=== PATIENT | male | born 1950 | race Caucasian/White ===

== ENCOUNTER 2023-07-19 09:29 | Emergency (ER) | payer MEDICARE, SELFPAY ==
[2023-07-19 09:47] VITALS: BP 180/70
[2023-07-19 09:57] VITALS: BMI 28.6
--- NOTE | 2023-07-19 10:07 | ED.GENMED ---
Addendum entered and electronically signed by Tish Lopes PA-C 07/23/23 07:17:
Urine culture grew out Klebsiella and Enterococcus. Patient has had a Shukla since February. He came in with a borderline temperature and urinary retention. His Shukla was replaced and he is feeling well, his urine is still slightly cloudy. I gave
him the option of speaking with his family doctor and having a urine rechecked because he could be colonized versus obstructing his antibiotic. Given that he has not had Shukla for terribly long he would prefer to take a different antibiotic for
now. Patient is not having any chills or rigors, back pain, vomiting. Return precautions given
Original Note:
History of Present Illness
General
Chief Complaint: Catheter/Tube Problem
Time Seen by Provider: 07/19/23 09:54
Travel History
Have you had any contact with someone who has COVID-19?: No
Do you have any symptoms of coronavirus? Fever > 100 degrees, chills, cough, shortness of breath, sore throat, loss of taste or smell, muscle aches, or headache?: No
History of Present Illness
History of Present Illness:
72-year-old male presents to the emergency department for evaluation of urinary retention. He has required Shukla catheter use since February of last year, states the tubing snagged on a shower and it was pulled out last night. He attempted to
continue to urinate on exam today without success. He sees urology through [facility] but is interested in seeing a new urologist locally
Past History
Past History
ED Past Medical History: Negative Arrthythmia
Social History
Tobacco: Non-smoker
Alcohol: None
Drug: None
Personal:
Living: with family
Employment: Employed
Family History
Family History: Other (Noncontributory)
Review of Systems
Review of Systems
Allergies reviewed?: Yes
All Other Systems: ROS reviewed and negative except as documented in HPI and ROS
Phy Exam
Physical Exam
Physical Exam:
GEN: Appears uncomfortable
HEENT: Oral mucosa moist, no scleral icterus
Cardiac: Regular rate
Lung: No respiratory distress, no tachypnea
MSK: No gross deformity or injuries
Skin: Good color, no pallor or jaundice, no rashes
Neuro: AO x3, moves all extremities freely
Psych: Calm, cooperative
Course
Orders/Labs/Results
Orders:
Orders
07/19/23 09:56
Shukla Placement- Treatment ONCE
Reason for insertion: Acute Retention
Catheter- Indwelling As Directed
Reason for insertion: Acute Retention
Discontinue Date/Time: 07/22/23 0600
07/19/23 10:19
Urinalysis Reflex To Culture Urgent
Date Specimen was Collected: 07/19/23
Time Specimen was Collected: 10:10
Urine Microscopic Reflex Cult Urgent
Urine Culture Urgent
CHERRI Source: U
Specimen Description:
Date Specimen was Collected: 07/19/23
Time Specimen was Collected: 10:10
Abnormal Lab Results
07/19/23
10:19
Ur Occult Blood Reflex 2+ A
(Negative)
Urine Nitrite (Reflex) Positive A
(Negative)
Leukocyte Esterase Rfl 2+ A
(Negative)
Urine RBC 7-10 A /HPF
(0-2)
Urine WBC (Reflex) >100 A /HPF
(0-5)
Urine Bacteria (Reflex) Many A
(Negative)
Urine Albumin (Reflex) 1+ A
(Neg - Trace)
Vital Signs
Initial and Last Documented VS:
Initial Vital Signs
Temp Pulse Resp BP Pulse Ox
99.2 F 72 24 180/70 95
07/19/23 09:47 07/19/23 09:47 07/19/23 09:47 07/19/23 09:47 07/19/23 09:47
Last Documented Vital Signs
Temp Pulse Resp BP Pulse Ox
99.2 F 72 24 180/70 95
07/19/23 09:47 07/19/23 09:47 07/19/23 09:47 07/19/23 09:47 07/19/23 09:47
MDM/Problems Addressed
MDM/Problems Addressed:
Shukla catheter in place with greater than 800 mL of urine drained patient improving, will cover with antibiotics given prolonged retention
*Critical Care Note
Total Time (30-74mins, 75-104mins- exclusive of procedures): Not Applicable
ED Attending Note
-
Portions of this chart may have been created with voice recognition software.� Occasional wrong word or��sound alike� substitutions may have occurred due to the inherent limitations of voice recognition software.
Discharge Plan
Departure
Patient Disposition: Home (Routine Discharge)
Date of Disposition: 07/19/23
Time of Disposition: 10:12
Patient with high blood pressure during this ER visit?: No
Discharge Problem:
Acute on chronic urinary retention
Instructions: How to Care for Your Shukla Catheter, Male
Prescriptions:
New
cephalexin 500 mg capsule
500 mg PO BID 7 Days Qty: 14 0RF
No Action
ondansetron 4 MG tablet,disintegrating
4 mg PO TIDPRN PRN (Reason: nausea/vomiting) Qty: 20 0RF
Interventions
Interventions:
*Risk Screen - Suicide Last Done: 07/19/23 09:57
*General Assessment Last Done: 07/19/23 09:57
*Neglect/Abuse Screening Last Done: 07/19/23 09:57
ED- Fall Risk Assessment Last Done: 07/19/23 09:57
*ED COVID-19 Vaccine History Last Done: 07/19/23 09:57
*Nursing Disposition Last Done: 07/19/23 11:09
GL-Sixzbo-Aveiugtzbg Assessment Last Done: 07/19/23 09:57
ED-Male Genitourinary Assessment Last Done: 07/19/23 09:57
Discharge Date and Time
Discharge Date/Time: 07/19/23 11:09
Print Language: ICELANDIC
[2023-07-19 10:25] LABS: Urine Albumin 1+ (Neg - Trace); Urine Bilirubin Negative (Negative); Urine Character Slightly Cloudy (Clear); Urine Color Yellow; Urine Glucose Negative (Negative); Urine Ketone Negative (Negative); Urine Leukocyte 2+ (Negative); Urine Nitrite Positive (Negative); Urine Occult Blood 2+ (Negative); Urine Urobilinogen Negative (Neg - 1+)
[2023-07-19 11:13] LABS: Urine Bacteria Many (Negative); Urine White Cell >100 /HPF (0-5)
== END 2023-07-19 11:09 | disposition home or self-care (01) ==
LOC: EMR 09:29
PROVIDERS: Physician Assistant; EMERGENCY PHYSICIAN Emergency Medicine; FAMILY PHYSICIAN Family Medicine
DX: R33.9 Retention of urine, unspecified (principal)
CPT/HCPCS: 99283; 51702; 81003; 81015; 87077; 87086; 87186

== ENCOUNTER → 2023-07-24 10:26 | Outpatient (REF) | payer MEDICARE, SELFPAY ==
[2023-07-24 11:52] LABS: ALT (SGPT) 18 U/L (0-50); AST (SGOT) 22 U/L (17-59); HDL Cholesterol 39 mg/dl; LDL Cholesterol, Calculated 84 mg/dl; Total Cholesterol 146 mg/dl (50-199); Triglyceride 118 mg/dl (10-149); Very Low Density Lipoprotein 23 mg/dl (0-30)
[2023-07-24 12:22] LABS: PSA, Total - Screen 8.09 ng/ml (0.0-4.0)
== END ==
LOC: REG 10:26
PROVIDERS: ATTENDING PHYSICIAN Family Medicine
DX: E78.2 Mixed hyperlipidemia (principal); I10 Essential (primary) hypertension; Z12.5 Encounter for screening for malignant neoplasm of prostate
CPT/HCPCS: 36415; 80061; 84450; 84460; G0103

== ENCOUNTER → 2023-11-21 11:04 | Outpatient (REF) | payer MEDICARE, SELFPAY ==
[2023-11-21 12:11] LABS: % Basophils 0.3 % (0-2); % Eosinophils 1.4 % (0-6); % Immature Granulocytes 0.5 % (0-0.5); % Lymphocytes 22.7 % (20.5-51.1); % Monocytes 5.1 % (1.7-9.3); Absolute Eosinophils 0.1 10^3/uL (0-0.7); Absolute Lymphocytes 1.4 10^3/uL (1.2-3.4); Absolute Monocytes 0.3 10^3/uL (0.1-0.6); Absolute Neutrophils 4.4 10^3/uL (1.4-6.5); Hematocrit 37.6 % (39.0-52.0); Hemoglobin 12.6 g/dL (13.0-18.0); Mean Corp Hgb Conc. 33.5 g/dL (33.0-37.0); Mean Corpuscular Hgb 27.4 pg (27.0-31.0); Mean Corpuscular Volume 81.7 fL (80.0-94.0); Mean Platelet Volume 10.4 fL (7.4-10.4); Nucleated Red Blood Cells % 0 % (-); Platelet Count 170 10^3/uL (130-400); Red Cell Dist. Width 13.7 % (11.5-14.5); White Blood Cell Count 6.3 10^3/uL (4.8-10.8)
[2023-11-21 12:36] LABS: ALT (SGPT) 14 U/L (0-50); AST (SGOT) 24 U/L (17-59); Blood Urea Nitrogen 19 mg/dl (9-20); Calcium 9.4 mg/dl (8.4-10.2); Carbon Dioxide 26 mmol/L (22-30); Chloride 103 mmol/L (98-107); Glucose 99 mg/dl (70-99); HDL Cholesterol 34 mg/dl; LDL Cholesterol, Calculated 86 mg/dl; Magnesium 2.1 mg/dl (1.6-2.3); Potassium 4.3 mmol/L (3.5-5.1); Sodium 141 mmol/L (135-145); Total Cholesterol 161 mg/dl (50-199); Triglyceride 205 mg/dl (10-149); Very Low Density Lipoprotein 41 mg/dl (0-30); eGFR > 60.00
[2023-11-23 05:07] LABS: PSA Total 0.8 ng/mL (0.0-4.0)
== END ==
LOC: REG 11:04
PROVIDERS: ATTENDING PHYSICIAN Surgery; FAMILY PHYSICIAN Family Medicine
DX: I10 Essential (primary) hypertension (principal); R39.11 Hesitancy of micturition; N40.1 Benign prostatic hyperplasia with lower urinary tract symptoms; E78.2 Mixed hyperlipidemia; R79.89 Other specified abnormal findings of blood chemistry
CPT/HCPCS: 36415; 80048; 80061; 83735; 84153; 84154; 84450; 84460; 85025

== ENCOUNTER → 2023-12-11 11:20 | Outpatient (REF) | payer MEDICARE, SELFPAY | LOC: HWRAD 11:20 | PROVIDERS: ATTENDING PHYSICIAN Surgery; FAMILY PHYSICIAN Family Medicine | DX: N43.3 Hydrocele, unspecified (principal) | CPT/HCPCS: 76870; 93976 ==

== ENCOUNTER 2024-10-31 10:15 | Emergency (ER) | payer MEDICARE, SELFPAY ==
[2024-10-31 10:16] VITALS: BP 176/69
--- NOTE | 2024-10-31 12:27 | ED.GENMED ---
History of Present Illness
General
Chief Complaint: Eye Problems
Time Seen by Provider: 10/31/24 11:06
History of Present Illness
History of Present Illness:
74-year-old male presents to the emergency department for evaluation of right eye redness and discomfort as well as blurry vision for the past week. He denies any trauma or injury, he wears glasses but no contacts. Denies any fever or headache,
denies seeing halos around objects. Does not have an eye doctor that he sees routinely
Past History
Past History
ED Past Medical History: Negative Arrthythmia
Social History
Tobacco: Non-smoker
Alcohol: None
Drug: None
Personal:
Living: with family
Employment: Employed
Family History
Family History: Other (Noncontributory)
Review of Systems
Review of Systems
Allergies reviewed?: Yes
All Other Systems: ROS reviewed and negative except as documented in HPI and ROS
Phy Exam
Physical Exam
Physical Exam:
GEN: Well appearing, NAD, WDWN
HEENT: Oral mucosa moist, no scleral icterus
Eyes: Moderate diffuse conjunctival injection on the right with limbic flush, anterior chamber is quiet with no hyphema or hypopyon. There is no focal fluorescein dye uptake.
Visual acuity: OS 20/25, OD 20/25
Ocular pressures: 33 mmHg on the right, 22 mmHg on the left
Cardiac: Regular rate
Lung: No respiratory distress, no tachypnea
MSK: No gross deformity or injuries
Skin: Good color, no pallor or jaundice, no rashes
Neuro: AO x3, moves all extremities freely
Psych: Calm, cooperative
Course
Vital Signs
Initial and Last Documented VS:
Initial Vital Signs
Temp Pulse Resp BP Pulse Ox
98.1 F 63 18 176/69 98
10/31/24 10:16 10/31/24 10:16 10/31/24 10:16 10/31/24 10:16 10/31/24 10:16
Last Documented Vital Signs
Temp Pulse Resp BP Pulse Ox
98.1 F 63 18 176/69 98
10/31/24 10:16 10/31/24 10:16 10/31/24 10:16 10/31/24 10:16 10/31/24 12:28
MDM/Problems Addressed
MDM/Problems Addressed:
Patient visual acuity is intact however intraocular pressure is mildly elevated on the right compared to the left. He has no signs of vision compromising condition at this point. Will start him empirically on antibiotics and have referred him to
ophthalmology as an outpatient who assured close follow-up on Saturday
*Pulse Oximetry
SaO2: 98
Oxygen Mode of Delivery: Room air
Patient hypoxic: no
*Critical Care Note
Total Time (30-74mins, 75-104mins- exclusive of procedures): Not Applicable
ED Attending Note
-
Portions of this chart may have been created with voice recognition software.� Occasional wrong word or��sound alike� substitutions may have occurred due to the inherent limitations of voice recognition software.
Discharge Plan
Departure
Patient Disposition: Home (Routine Discharge)
Date of Disposition: 10/31/24
Time of Disposition: 12:28
Patient with high blood pressure during this ER visit?: No
Discharge Problem:
Acute conjunctivitis of right eye
Instructions: Conjunctivitis (Noninfectious Pinkeye) (DC)
Prescriptions:
New
ofloxacin 0.3 % drops
2 drp ophthalmic (eye) QID 5 Days Qty: 5 0RF
No Action
ondansetron 4 MG tablet,disintegrating
4 mg PO TIDPRN PRN (Reason: nausea/vomiting) Qty: 20 0RF
cephalexin 500 mg capsule
500 mg PO BID 7 Days Qty: 14 0RF
amoxicillin-pot clavulanate 875-125 mg tablet
1 tab PO BID Qty: 14 0RF
Referrals:
Leslie Weaver MD [Active, Ophthalmology] - 11/02/24
Keon Figueroa DO [Primary Care Provider, [facility]]
Interventions
Interventions:
*Risk Screen - Suicide Last Done: 10/31/24 10:16
*General Assessment Last Done: 10/31/24 10:16
*Neglect/Abuse Screening Last Done: 10/31/24 10:16
*ED- Fall Risk Assessment Last Done: 10/31/24 11:56
*Nursing Disposition Last Done: 10/31/24 13:01
Discharge Date and Time
Discharge Date/Time: 10/31/24 13:02
Print Language: FAROESE
== END 2024-10-31 13:02 | disposition home or self-care (01) ==
LOC: EMR 10:15
PROVIDERS: EMERGENCY PHYSICIAN Emergency Medicine; PRIMARYCARE PHYSICIAN Family Medicine
DX: H10.31 Unspecified acute conjunctivitis, right eye (principal)
CPT/HCPCS: 99283